=== PATIENT | male | born 1950 | race Caucasian/White ===

== ENCOUNTER 2019-03-19 09:19 | Emergency (ER) | payer OTHER ==
[2019-03-19] MEDS ORDERED: NS 1,000 ML IV ONE (09:40)
[2019-03-19] MEDS ORDERED: KETOROLAC 30 MG/1 ML SDV IVP ONE (09:40)
[2019-03-19] MEDS ORDERED: ONDANSETRON 4 MG/2 ML VIAL IVP ONE (09:40)
--- NOTE | 2019-03-19 09:45 | EDPHY ---
H & P Stated Complaint: rt flank pain started this am 7 Time Seen by Provider: 03/19/19 09:30 HPI/ROS: CHIEF COMPLAINT: Right CVA pain HISTORY OF PRESENT ILLNESS: Patient is a 69-year-old man [employer] with no significant known past medical history. He reports that 7:00 a.m. This morning he had abrupt onset right CVA pain. It is been constant since that time. No nausea vomiting. No constipation. No hematuria. No recent trauma. No fever. He has never had symptoms like this before. He has not taken any medications. Severity: Severe Modifying factors: None REVIEW OF SYSTEMS: Constitutional: denies: chills, fever, recent illness, recent injury EENTM: denies: blurred vision, double vision, nose congestion Respiratory: denies: cough, shortness of breath Cardiac: denies: chest pain, irregular heart rate, lightheadedness, palpitations Gastrointestinal/Abdominal: denies: abdominal pain, diarrhea, nausea, vomiting, blood streaked stools Genitourinary: See HPI denies: dysuria, frequency, hematuria Musculoskeletal: denies: joint pain, muscle pain Skin: denies: lesions, rash, jaundice, bruising Neurological: denies: headache, numbness, paresthesia, tingling, dizziness, weakness Hematologic/Lymphatic: denies: blood clots, easy bleeding, easy bruising Immunologic/allergic: denies: HIV/AIDS, transplant 10 systems reviewed and negative except as noted EXAM: GENERAL: Moderate distress, uncomfortable HEAD: Atraumatic, normocephalic. EYES: Pupils equal round and reactive to light, extraocular movements intact, sclera anicteric, conjunctiva are normal. ENT: TMs normal, nares patent, oropharynx clear without exudates. Moist mucous membranes. NECK: Normal range of motion, supple without lymphadenopathy or JVD. LUNGS: Breath sounds clear to auscultation bilaterally and equal. No wheezes rales or rhonchi. HEART: Regular rate and rhythm without murmurs, rubs or gallops. ABDOMEN: Soft, nontender, normoactive bowel sounds. No guarding, no rebound. No masses appreciated. BACK: Right CVA pain but No CVA tenderness, no spinal tenderness, step-offs or deformities EXTREMITIES: Normal range of motion, no pitting or edema. No clubbing or cyanosis. NEUROLOGICAL: Cranial nerves II through XII grossly intact. Normal speech, normal gait. 5/5 strength, normal movement in all extremities, normal sensation , normal reflexes PSYCH: Normal mood, normal affect. SKIN: Warm, dry, normal turgor, no visible rashes or lesions. Source: Patient Exam Limitations: No limitations - Personal History Current Tetanus Diphtheria and Acellular Pertussis (TDAP): No - Medical/Surgical History Hx Asthma: No Hx Chronic Respiratory Disease: No Hx Diabetes: No Hx Cardiac Disease: No Hx Renal Disease: No Hx Cirrhosis: No Hx Alcoholism: No Hx HIV/AIDS: No Hx Splenectomy or Spleen Trauma: No Other PMH: no med or surg hx - Family History Significant Family History: No pertinent family hx - Social History Smoking Status: Never smoked Alcohol Use: Sober Drug Use: None Constitutional: Initial Vital Signs Heart Rate 65 03/19/19 09:27 Respiratory Rate 20 03/19/19 09:27 Blood Pressure 137/89 H 03/19/19 09:27 O2 Sat (%) 97 03/19/19 09:27 O2 Delivery Mode Room Air Allergies/Adverse Reactions: No Known Allergies Allergy (Unverified 03/19/19 09:26) Home Medications: Medication Instructions Recorded Hydrocodone/APAP 5/325 [[place] 1 - 2 tab PO Q4H PRN #10 tab 03/19/19 5/325] Ibuprofen 800 mg PO TID PRN #30 tablet 03/19/19 Medical Decision Making - Diagnostics Imaging Results: Imaging Impressions Abdomen/Pelvis CT 03/19/19 09:41 Impression: 1. A 3-mm calculus in the mid right ureter, with mild right hydronephrosis. Nonobstructive right nephrolithiasis. 2. Hepatic cysts. 3. Nonspecific nodular prostatomegaly. Results called and discussed with Aamir Chong M.D., on March 19, 2019 at 1034. Attention: This CT examination is specifically designed to evaluate patients who are clinically suspected of having acute obstructive uropathy. This examination does not use radiographic contrast, and as such, provides only a limited evaluation of the abdomen, pelvis, and retroperitoneum. If there is further clinical suspicion for pathological conditions other than obstructive uropathy, a complete CT evaluation of the abdomen and pelvis utilizing intravenous, oral, and rectal contrast should be considered. Imaging: Discussed imaging studies w/ call center nurse Radiologist ED Course/Re-evaluation: We discussed the patient's CT results at length and reviewed the images together. We also discussed straining the urine and follow up with Urology. The patient continues to decline pain medication now but will take a prescription in case he needs it at home. Discussed follow-up as well as indications for returning. He and his feel comfortable with this plan. Differential Diagnosis: Partial list of the Differential diagnosis considered include but were not limited to; kidney stone, urinary tract infection, aneurysm, dissection and although unlikely based on the history and physical exam, I also considered appendicitis, trauma. I discussed these differential diagnoses and the plan with the patient as well as the usual and expected course. The patient understands that the diagnosis is provisional and that in medicine we are not always correct and that further workup is often warranted. Usual and customary warnings were given. All of the patient's questions were answered. The patient was instructed to return to the emergency department should the symptoms at all worsen or return, otherwise to followup with the physician as we discussed. - Data Points Laboratory Results: 03/19/19 10:11 POC Sodium 144 mEq/L mEq/L (135-145) POC Potassium 4.5 mEq/L mEq/L (3.3-5.0) POC Chloride 104.0 mEq/L mEq/L (97-110) POC Total CO2 27 mEq/L mEq/L (22-31) POC BUN 24 mg/dL H mg/dL (7-23) POC Creatinine 1.5 mg/dL H mg/dL (0.7-1.3) POC Glucose 144 mg/dL H mg/dL (70-100) POC Calcium 10.1 mg/dL mg/dL (8.5-10.4) POC Total Bilirubin 1.0 mg/dL mg/dL (0.1-1.4) POC AST 34 IU/L IU/L (17-59) POC ALT 28 IU/L IU/L (21-72) POC Alk Phosphatase 35 IU/L L IU/L (38-126) POC Total Protein 7.9 g/dL g/dL (6.3-8.2) POC Albumin 4.5 g/dL g/dL (3.5-5.0) Medications Given: Discontinued Medications Sodium Chloride (Ns) 1,000 mls @ 0 mls/hr IV EDNOW ONE; Wide Open PRN Reason: Protocol Stop: 03/19/19 09:41 Last Admin: 03/19/19 10:04 Dose: 1,000 mls Ketorolac Tromethamine (Toradol) 15 mg IVP EDNOW ONE Stop: 03/19/19 09:41 Last Admin: 03/19/19 10:51 Dose: Not Given Ondansetron HCl (Zofran) 4 mg IVP EDNOW ONE Stop: 03/19/19 09:41 Last Admin: 03/19/19 10:51 Dose: Not Given Point of Care Test Results: CBC CBC Collection Date 03/19/19 CBC Collection Time 10:05 WBC 7.86 RBC 5.07 HGB 15.0 HCT 45.0 PLT 217 Neut # 5.91 Neut 75.2 LYMPH # 1.46 LYMPH 18.6 MCV 88.8 Chemistry 03/19/19 10:11 POC Sodium 144 mEq/L mEq/L (135-145) POC Potassium 4.5 mEq/L mEq/L (3.3-5.0) POC Chloride 104.0 mEq/L mEq/L (97-110) POC Total CO2 27 mEq/L mEq/L (22-31) POC BUN 24 mg/dL H mg/dL (7-23) POC Creatinine 1.5 mg/dL H mg/dL (0.7-1.3) POC Glucose 144 mg/dL H mg/dL (70-100) POC Calcium 10.1 mg/dL mg/dL (8.5-10.4) POC Total Bilirubin 1.0 mg/dL mg/dL (0.1-1.4) POC AST 34 IU/L IU/L (17-59) POC ALT 28 IU/L IU/L (21-72) POC Alk Phosphatase 35 IU/L L IU/L (38-126) POC Total Protein 7.9 g/dL g/dL (6.3-8.2) POC Albumin 4.5 g/dL g/dL (3.5-5.0) Departure - Departure Disposition: Home, Routine, Self-Care Clinical Impression: Calculus of right kidney Condition: Fair Instructions: Hydrocodone/Acetaminophen (By mouth), Ibuprofen (By mouth), Kidney Stones (ED) Additional Instructions: Strain your urine and take it to the urologist for analysis. Referrals: NONE *PRIMARY CARE P,. [Primary Care Provider] - As per Instructions Lucian Marie MD [Medical Doctor] - 5-7 days, call for appt. Prescriptions: Hydrocodone/APAP 5/325 [[place] 5/325] 1 - 2 tab PO Q4H PRN #10 tab PRN Reason: Pain, Moderate Ibuprofen 800 mg PO TID PRN #30 tablet PRN Reason: Pain, Moderate
[2019-03-19 11:11] VITALS: BP 129/93
== END 2019-03-19 11:06 | disposition home or self-care (01) ==
LOC: CED 09:19
DX: N20.0 Calculus of kidney (principal); E86.9 Volume depletion, unspecified
CPT/HCPCS: 74176-PO; 80053-ER; 85025-QW-ER; 96360-ER; 99285-ER